=== PATIENT | female | born 1970 | race Asian ===

== ENCOUNTER 2016-03-19 10:43 | Emergency (ER) | payer OTHER, BC ==
[2016-03-19 11:30] VITALS: TEMP 98.4; BMI 37.2
[2016-03-19] MEDS ORDERED: diazePAM 5 MG TABLET PO ONE (17:45)
[2016-03-19] MEDS ORDERED: KETOROLAC TROMETHAMINE 60 MG/2 ML VIAL ONE (17:45)
[2016-03-19] MEDS ORDERED: diazePAM 5 MG TABLET ONE (17:45)
[2016-03-19] MEDS ORDERED: KETOROLAC TROMETHAMINE 60 MG/2 ML VIAL IM ONE (17:45)
[2016-03-19] MEDS ORDERED: ALBUTEROL SO4 2.5/IPRATROPIUM 0.5 INH SOL 3 ML VIAL.NEB. NEB ONE (17:47)
--- NOTE | 2016-03-19 17:47 | PDOC ---
History of Present Illness - General History Source: Patient Exam Limitations: No Limitations - History of Present Illness Initial Comments: 03/19/16 18:57 The patient is a 45 year old female, with a significant past medical history of HTN, who was sent by his PCP and presents to the emergency department with left sided back pain since . The patient ranks her pain a 9/10 in pain intensity. She denies any injury or trauma. She reports that the pain occasionally radiates down her leg. She reports the pain is worse when she tries to sits and walks long distances. She describes the pain as sharp and constant. The patient reports being here 03/16/16 with similar symptoms and discharged with percocets. She reports percocets often alleviate her pain. Pt denies any numbness/tingling/weakness, urinary/bowel complaints, recent feve/ rchills. She denies chest pain and shortness of breath. She denies fever, chills, headache and dizziness. She denies nausea, vomit, diarrhea and constipation. She denies dysuria, frequency, urgency and hematuria. Allergies: As per Nursing notes. Past surgical history: None of significance, Social history: Former smoker. Denies EtOH and drug abuse. PCP: Dr. Siri Valadez <Alfonso Emmanuel - Last Filed: 03/19/16 19:01> <Himanshu Ott - Last Filed: 03/19/16 21:15> - General Chief Complaint: Pain, Acute Stated Complaint: PCP SENT, LT SIDE PAIN Time Seen by Provider: 03/19/16 17:04 Past History <Alfonso Emmanuel - Last Filed: 03/19/16 19:01> - Past Medical History HTN: Yes - Surgical History Cholecystectomy: Yes - Psycho/Social/Smoking Cessation Hx Anxiety: No Suicidal Ideation: No Smoking Status: No Smoking History: Never smoked Have you smoked in the past 12 months: No Number of Cigarettes Smoked Daily: 0 Information on smoking cessation initiated: No Hx Alcohol Use: No Drug/Substance Use Hx: No Substance Use Type: None <Himanshu Ott - Last Filed: 03/19/16 21:15> - Past Medical History Allergies/Adverse Reactions: Allergies Allergy/AdvReac Type Severity Reaction Status Date / Time doxycycline Allergy NAUSEA Verified 03/19/16 11:24 lisinopril Allergy Verified 03/19/16 11:24 Sulfa (Sulfonamide Allergy Verified 03/19/16 11:24 Antibiotics) sulfamethoxazole Allergy Verified 03/19/16 11:24 [From Bactrim] trimethoprim [From Bactrim] Allergy Verified 03/19/16 11:24 amlodipine AdvReac Intermediate Leg Edema Verified 03/19/16 11:24 Home Medications: Ambulatory Orders Albuterol Sulfate Inhaler - [Ventolin HFA Inhaler -] 1 - 2 inh PO Q4H #1 inhaler 03/19/16 Cyclobenzaprine HCl [Flexeril -] 10 mg PO TID #21 tablet 03/19/16 Ibuprofen 400 mg PO QID #30 tablet 03/19/16 Levofloxacin [Levaquin] 750 mg PO DAILY #5 tablet 03/19/16 Review of Systems - Review of Systems Able to Perform ROS?: Yes Comments:: 03/19/16 18:57 CONSTITUTIONAL: No reported: Fever, Chills, Diaphoresis, Generalized Weakness, Malaise, Loss of Appetite HEENT: No reported: Rhinorrhea, Nasal Congestion, Throat Pain, Throat Swelling, Difficulty Swallowing, Mouth Swelling, Ear Pain, Eye Pain, Visual Changes CARDIOVASCULAR: No reported: Chest Pain, Syncope, Palpitations, Irregular Heart Rate, Lightheadedness, Peripheral Edema RESPIRATORY: No reported: Cough, Shortness of Breath, SOB with Exertion, Orthopnea, Wheezing , Stridor, Hemoptysis GASTROINTESTINAL: . No reported: Vomiting, Diarrhea, Constipation, Melena, Hematochezia GENITOURINARY: Reported: Left back pain. No reported: Dysuria, Frequency, Urgency, Hesitancy, MUSCULOSKELETAL: No reported: Myalgia, Arthralgia, Joint Swelling, Back pain, Neck Pain SKIN: No reported: Rash, Itching, Pallor HEMEATOLOGIC/IMMUNOLOGIC: No reported: Easy Bleeding, Easy Bruising, Lymphadenopathy, Frequent infections ENDOCRINE: No reported: Unexplained Weight Gain, Unexplained Weight Loss, Heat Intolerance , Cold Intolerance NEUROLOGIC: No reported: Headache, Focal Weakness, Paresthesias, Vertigo, Lightheadedness, Unsteady Gait, Seizure, Mental Status Changes, Incontinence PSYCHIATRIC: No reported: Anxiety, Depression <Alfonso Emmanuel - Last Filed: 03/19/16 19:01> *Physical Exam - Vital Signs Last Vital Signs Temp Pulse Resp BP Pulse Ox 98.4 F 76 19 117/65 98 03/19/16 11:25 03/19/16 16:50 03/19/16 16:50 03/19/16 16:50 03/19/16 16:50 - Physical Exam Comments: 03/19/16 18:57 GENERAL: The patient is awake, alert, and fully oriented, Nontoxic. HEAD: Normocephalic, atraumatic. EYES: extraocular movements intact, sclera anicteric, conjunctiva clear. ENT: Normal voice, Moist mucous membranes. NECK: Normal range of motion, supple LUNGS: Mild wheezing both lungs wheezes, no rhonchi, no rales. HEART: Regular rate and rhythm, without murmur, rub or gallop. ABDOMEN: Soft, nontender, normoactive bowel sounds. No guarding, no rebound. No focal tenderness. No CVA tenderness. BACK: No focal bony tenderness but appeared uncomfortable while twisting her back. Mild pain with moving and walking. EXTREMITIES: Normal range of motion, no edema. No clubbing or cyanosis. No cords , erythema, or tenderness. NEUROLOGICAL: No facial asymmetry, Normal speech. strength 5/5 in upper/lower extrmities, normal gait. PSYCH: Normal mood, normal affect. SKIN: Warm, Dry, normal turgor. <Alfonso Emmanuel - Last Filed: 03/19/16 19:01> - Vital Signs Last Vital Signs Temp Pulse Resp BP Pulse Ox 98.4 F 83 18 130/83 99 03/19/16 11:25 03/19/16 11:25 03/19/16 11:25 03/19/16 11:25 03/19/16 11:25 <Himanshu Ott - Last Filed: 03/19/16 21:15> ED Treatment Course - ADDITIONAL ORDERS Additional order review: Laboratory Results 03/19/16 18:10 Urine Color Yellow Urine Appearance Slcloudy Urine pH 6.0 Ur Specific [place] 1.018 Urine Protein Negative Urine Glucose (UA) Negative Urine Ketones Negative Urine Blood 1+ H Urine Nitrite Negative Urine Bilirubin Negative Urine Urobilinogen Negative Ur Leukocyte Esterase 3+ H Urine RBC 18 Urine WBC 40 Ur Epithelial Cells Few Urine Bacteria Rare Urine Mucus Rare Urine HCG, Qual Negative - Medications Given in the ED: ED Medications Discontinued Medications Generic Name Dose Route Start Last Admin Trade Name Aiden PRN Reason Stop Dose Admin Diazepam 5 mg 03/19/16 17:45 03/19/16 17:50 Valium - PO 03/19/16 17:46 5 mg ONCE ONE Administration Ketorolac Tromethamine 60 mg 03/19/16 17:45 03/19/16 17:50 Toradol Injection - IM 03/19/16 17:46 60 mg ONCE ONE Administration <Alfonso Emmanuel - Last Filed: 03/19/16 19:01> Medical Decision Making - Medical Decision Making 03/19/16 17:47 45y yF hx of htn presents with R back pain worse with movement, no associated numbnes/stingling/weakess, no trauma, no urinary/bowel incontinence. on exam pt in no acute distress but appears uncomfortablw hwne she is moving around espeicaily with rotational movements, however there is no focal tendereness on exam. will ck UA to r/o hematuria/uti suspect this is msk in nature - will give toradol and valium 03/19/16 20:57 pt feeling improved, but still endorrses pain when she moves around. pts UA was intially dirty repeated with pt wiping well - still dirty will tx pt for uti w/ leviquin as it will cover pyleo clinically pts pain seems msk and not pyelo - will d/c with supportive management including flexeril, motrin, heat maximino lhave pt fu with pmd for further evaluation. I discussed the physical exam findings, ancillary test results and final diagnoses with the patient. I answered all of the patient's questions. The patient was satisfied with the care received and felt comfortable with the discharge plan and treatment plan. The patient will call their primary care physician within 24 hours to arrange follow-up and will return to the Emergency Department with any new, persistent or worsening symptoms. A portion of this note was documented by scribe services under my direction. I have reviewed the details of the note, within reason, and agree with the documentation with the following case summary and management plan written by me <Himanshu Ott - Last Filed: 03/19/16 21:15> *DC/Admit/Observation/Transfer - Attestations Scribe Attestion: 01/03/17 18:57 Documentation prepared by Alfonso Emmanuel, acting as medical billing service for Himanshu Ott MD. <Alfonso Emmanuel - Last Filed: 03/19/16 19:01> - Discharge Dispostion Admit: No <Himanshu Ott - Last Filed: 03/19/16 21:15> Diagnosis at time of Disposition: Back pain Qualifiers: Back pain location: low back pain Chronicity: acute Back pain laterality: left Sciatica presence: without sciatica Qualified Code(s): M54.5 - Low back pain UTI (urinary tract infection) Qualifiers: Urinary tract infection type: site unspecified Hematuria presence: with hematuria Qualified Code(s): N39.0 - Urinary tract infection, site not specified - Discharge Dispostion Disposition: HOME Condition at time of disposition: Improved - Prescriptions Prescriptions: Cyclobenzaprine HCl [Flexeril -] 10 mg PO TID #21 tablet Ibuprofen 400 mg PO QID #30 tablet Levofloxacin [Levaquin] 750 mg PO DAILY #5 tablet Albuterol Sulfate Inhaler - [Ventolin HFA Inhaler -] 1 - 2 inh PO Q4H #1 inhaler - Referrals Referrals: Siri Valadez [Primary Care Provider] - - Patient Instructions Printed Discharge Instructions: DI for Low Back Pain, DI for Urinary Tract Infection (UTI) Additional Instructions: Return to the emergency department immediately with ANY new, persistent or worsening symptoms including numbness, tingling, weakness, fevers or any other concerns. Take ibuprofen for pain as needed. Apply heat to your sore muscles. Take your antibiotics as prescribed You MUST call and follow up with your doctor tomorrow for further evaluation of your symptoms. Results were discussed with you. Please make sure your doctor reviews the results of your emergency evaluation. Print Language: SERBIAN - Post Discharge Activity Work/School Note: Back to Work
[2016-03-19 18:27] LABS: URINE APPEARANCE SLCLOUDY; URINE BILIRUBIN NEGATIVE (NEGATIVE); URINE COLOR YELLOW; URINE GLUCOSE (UA) NEGATIVE (NEGATIVE); URINE KETONE NEGATIVE (NEGATIVE); URINE NITRITE NEGATIVE (NEGATIVE); URINE PROTEIN NEGATIVE (NEGATIVE); URINE UROBILINOGEN NEGATIVE E.U./dl (0.2-1.0)
[2016-03-19 18:29] LABS: URINE BLOOD 1+ (NEGATIVE); URINE LEUK ESTERASE 3+ (NEGATIVE)
[2016-03-19 18:34] LABS: URINE BACTERIA RARE /hpf (NONE SEEN); URINE MUCUS RARE; URINE RBC 18 /hpf (0-3); URINE WBC 40 /hpf (3-5)
[2016-03-19 18:43] VITALS: BP 117/65; PULSE 76
[2016-03-19 19:54] LABS: URINE APPEARANCE CLEAR; URINE BILIRUBIN NEGATIVE (NEGATIVE); URINE COLOR YELLOW; URINE GLUCOSE (UA) NEGATIVE (NEGATIVE); URINE KETONE NEGATIVE (NEGATIVE); URINE NITRITE NEGATIVE (NEGATIVE); URINE PROTEIN NEGATIVE (NEGATIVE); URINE UROBILINOGEN 2.0 E.U/dl E.U./dl (0.2-1.0)
[2016-03-19 19:55] LABS: URINE BLOOD 1+ (NEGATIVE); URINE LEUK ESTERASE 2+ (NEGATIVE)
[2016-03-19 19:56] LABS: URINE MUCUS RARE; URINE RBC 13 /hpf (0-3); URINE WBC 14 /hpf (3-5)
== END 2016-03-19 21:18 | disposition home or self-care (01) ==
LOC: JER 10:43
PROC: 3E0233Z Introduction of Anti-inflammatory into Muscle, Percutaneous Approach (ICD-10-PCS; principal; 2016-03-19)
PROC: 3E0F7GC Introduction of Other Therapeutic Substance into Respiratory Tract, Via Natural or Artificial Opening (ICD-10-PCS; 2016-03-19)
DX: N39.0 Urinary tract infection, site not specified (principal); M54.5 Low back pain; I10 Essential (primary) hypertension
CPT/HCPCS: 81003; 81015; 84703; 87086; 99282-25

== ENCOUNTER 2017-04-07 14:17 | Emergency (ER) | payer OTHER, BC ==
[2017-04-07 14:23] VITALS: BMI 35.4
[2017-04-07] MEDS ORDERED: FAMOTIDINE 20 MG/50 ML IVPB 20 MG/50 ML MG IVPB ONE (14:42)
[2017-04-07] MEDS ORDERED: ONDANSETRON 4 MG/2 ML VIAL IVPUSH ONE (14:42)
[2017-04-07] MEDS ORDERED: SODIUM CHLORIDE 0.9% 500 ML INFUS.BAG IV ONE (14:42)
--- NOTE | 2017-04-07 14:42 | PDOC ---
History of Present Illness - General History Source: Patient Exam Limitations: No Limitations - History of Present Illness Initial Comments: 04/07/17 15:50 The patient is a 46 y.o female with significant past medical history of HTN and hypothyroidism, who presents to the emergency room complaining of 2 days of nausea, multiple episodes of vomiting, and intermittent, crampy epigastric abdominal pain. The patient explains that the nausea and vomiting started last night. She experienced approximately 10 episodes of nonbloody, nonbilious vomiting and multiple episodes of diarrhea. Denies bloody, tarry stool. The patient notes that she had a 99 degree fever and chills throughout the day. She notes that she may have had sick contact at work. Reports cramping abd pain occurs just prior to vomiting. Allergies: doxycycline, Sulfa, lisinopril, sulfamethoxazole, trimethoprim, amlodipine Surgical hx: cholecystectomy PCP: Dr. Siri Valadez <Dot De La Vega - Last Filed: 04/07/17 15:50> <Kathy Kline - Last Filed: 04/07/17 16:47> - General Chief Complaint: Nausea/Vomiting Stated Complaint: N/V/D, ABD PAIN Time Seen by Provider: 04/07/17 14:20 Past History <Dot De La Vega - Last Filed: 04/07/17 15:50> - Past Medical History COPD: No HTN: Yes Thyroid Disease: Yes - Surgical History Cholecystectomy: Yes - Suicide/Smoking/Psychosocial Hx Smoking Status: No Smoking History: Never smoked Have you smoked in the past 12 months: No Number of Cigarettes Smoked Daily: 0 Hx Alcohol Use: Yes Drug/Substance Use Hx: No Substance Use Type: Alcohol <Kathy Kline - Last Filed: 04/07/17 16:47> - Past Medical History Allergies/Adverse Reactions: Allergies Allergy/AdvReac Type Severity Reaction Status Date / Time doxycycline Allergy NAUSEA Verified 04/07/17 14:18 lisinopril Allergy Verified 04/07/17 14:18 Sulfa (Sulfonamide Allergy Verified 04/07/17 14:18 Antibiotics) sulfamethoxazole Allergy Verified 04/07/17 14:18 [From Bactrim] trimethoprim [From Bactrim] Allergy Verified 04/07/17 14:18 amlodipine AdvReac Intermediate Leg Edema Verified 04/07/17 14:18 Home Medications: Ambulatory Orders Levothyroxine [Synthroid -] 50 mcg PO DAILY 04/07/17 Ondansetron [Zofran Odt -] 4 mg SL TID PRN #14 od.tablet 04/07/17 Review of Systems - Review of Systems Able to Perform ROS?: Yes Comments:: 04/07/17 15:51 GENERAL/CONSTITUTIONAL: +fever, chills. No weakness. HEAD, EYES, EARS, NOSE AND THROAT: No change in vision. No ear pain or discharge. No sore throat. GASTROINTESTINAL: +nausea, +vomiting, +abdominal pain, +diarrhea No constipation. GENITOURINARY: No dysuria, frequency, or change in urination. CARDIOVASCULAR: No chest pain or shortness of breath. RESPIRATORY: No cough, wheezing, or hemoptysis. MUSCULOSKELETAL: No joint or muscle swelling or pain. No neck or back pain. SKIN: No rash NEUROLOGIC: No headache, vertigo, loss of consciousness, or change in strength/ sensation. ENDOCRINE: No increased thirst. No abnormal weight change. HEMATOLOGIC/LYMPHATIC: No anemia, easy bleeding, or history of blood clots. ALLERGIC/IMMUNOLOGIC: No hives or skin allergy. <Dot De La Vega - Last Filed: 04/07/17 15:50> *Physical Exam - Vital Signs Last Vital Signs Temp Pulse Resp BP Pulse Ox 99.2 F 76 18 130/91 100 04/07/17 14:18 04/07/17 14:18 04/07/17 14:18 04/07/17 14:18 04/07/17 14:18 - Physical Exam Comments: 04/07/17 15:51 GENERAL: Awake, alert, and fully oriented, in no acute distress HEAD: No signs of trauma EYES: PERRLA, EOMI, sclera anicteric, conjunctiva clear ENT: Auricles normal inspection, hearing grossly normal, nares patent, oropharynx clear without exudates. Moist mucosa NECK: Normal ROM, supple, no lymphadenopathy, JVD, or masses LUNGS: Breath sounds equal, clear to auscultation bilaterally. No wheezes, and no crackles HEART: Regular rate and rhythm, normal S1 and S2, no murmurs, rubs or gallops ABDOMEN: Soft, nontender, normoactive bowel sounds. No guarding, no rebound. No masses. Neg tay sign. No CVAT EXTREMITIES: Normal range of motion, no edema. No clubbing or cyanosis. No cords, erythema, or tenderness BACK: No midline spinal tenderness in cervical/thoracic/lumbar region NEUROLOGICAL: Normal speech, cranial nerves intact, negative pronator drift, 5/ 5 strength in all 4 extremities, normal sensation to light touch in all 4 extremities, normal cerebellar exam, normal gait, normal reflexes and tone SKIN: Warm, Dry, normal turgor, no rashes or lesions noted. <Dot De La Vega - Last Filed: 04/07/17 15:50> - Vital Signs Last Vital Signs Temp Pulse Resp BP Pulse Ox 99.2 F 76 18 130/91 100 04/07/17 14:18 04/07/17 14:18 04/07/17 14:18 04/07/17 14:18 04/07/17 14:18 <Kathy Kline - Last Filed: 04/07/17 16:47> ED Treatment Course - LABORATORY CBC & Chemistry Diagram: 04/07/17 14:36 04/07/17 14:36 - ADDITIONAL ORDERS Additional order review: Laboratory Results 04/07/17 14:40 Lipase 26 04/07/17 14:36 RBC 5.21 H MCV 86.7 MCHC 32.5 RDW 13.0 MPV 8.5 Neutrophils % 73.1 Lymphocytes % 15.3 Monocytes % 8.6 Eosinophils % 1.5 Basophils % 1.5 - Medications Given in the ED: ED Medications Discontinued Medications Generic Name Dose Route Start Last Admin Trade Name Freq PRN Reason Stop Dose Admin Famotidine/Sodium Chloride 20 mg in 50 mls @ 100 mls/hr 04/07/17 14:42 14:52 Pepcid 20 Mg Premixed Ivpb - IVPB 04/07/17 15:11 100 mls/hr ONCE ONE Administration Ondansetron HCl 4 mg 04/07/17 14:42 04/07/17 14:52 Zofran Injection IVPUSH 04/07/17 14:43 4 mg ONCE ONE Administration Sodium Chloride 2,000 ml 04/07/17 14:42 04/07/17 14:52 Normal Saline - IV 04/07/17 14:43 2,000 ml ONCE ONE Administration <Dot De La Vega - Last Filed: 04/07/17 15:50> - LABORATORY CBC & Chemistry Diagram: 04/07/17 14:36 04/07/17 14:36 <Kathy Kline - Last Filed: 04/07/17 16:47> Medical Decision Making - Medical Decision Making 04/07/17 14:44 46-year-old female with a history of hypertension, hypothyroidism presents with epigastric cramping associated with nonbloody nausea, vomiting, and diarrhea. Vitals are unremarkable. Exam with sightly dry mucous membranes and mild epigastric tenderness to palpation. The patient is a hospital employee. Differential includes but not limited to gastroenteritis versus pancreatitis versus colitis. Will obtain labs, urine test, and give IV fluids, antiemetics for symptom control. Will hold off on any imaging as patient does not have any right upper quadrant or lower abdominal tenderness to palpation. 04/07/17 16:23 Labs unremarkable, K slightly low at 3.4, gave pt 20meq PO KCl, felt slightly nauseous afterwards but improved with IV reglan. UPT neg. Repeat abd exam non tender. Pt tolerating PO. Likely gastroetneritis. I discussed the physical exam findings, ancillary test results and final diagnoses with the patient. I answered all of the patient's questions. The patient was satisfied with the care received and felt comfortable with the discharge plan and treatment plan. The patient will call their primary care physician within 24 hours to arrange follow-up and will return to the Emergency Department with any new, persistent or worsening symptoms. <Kathy Kline - Last Filed: 04/07/17 16:47> *DC/Admit/Observation/Transfer - Attestations Scribe Attestion: 04/07/17 15:51 Documentation prepared by ANSON Wakefield, acting as medical pathologist for Kathy Kline MD. <Dot De La Vega - Last Filed: 04/07/17 15:50> - Discharge Dispostion Admit: No - Attestations Physician Attestion: 04/07/17 16:24 I, Dr. Kathy Kline MD, attest that this document has been prepared under my direction and personally reviewed by me in its entirety. I further attest, that it accurately reflects all work, treatment, procedures and medical decision -making performed by me. <Kathy Kline - Last Filed: 04/07/17 16:47> Diagnosis at time of Disposition: Gastroenteritis - Discharge Dispostion Disposition: HOME Condition at time of disposition: Stable - Prescriptions Prescriptions: Ondansetron [Zofran Odt -] 4 mg SL TID PRN #14 od.tablet PRN Reason: Nausea - Referrals Referrals: Siri Valadez [Primary Care Provider] - - Patient Instructions Printed Discharge Instructions: DI for Nausea -- Adult, DI for Vomiting -- Adult Additional Instructions: Follow-up with Dr. Valadez within 1-2 days. Stay hydrated and drink plenty of fluids. Use Zofran as needed for nausea. Return to the emergency department if you have any new, worsening or concerning symptoms. - Post Discharge Activity Forms/Work/School Notes: Back to Work
[2017-04-07] MEDS ORDERED: ONDANSETRON 4 MG/2 ML VIAL ONE (14:44)
[2017-04-07 15:02] LABS: BASO % 1.5 % (0-2.0); EOS % 1.5 % (0-4.5); HEMATOCRIT 45.2 % (32.4-45.2); HEMOGLOBIN 14.7 GM/dl (10.7-15.3); LYMPH % 15.3 % (8-40); MCH 28.2 pg (25.7-33.7); MCHC 32.5 g/dl (32.0-36.0); MEAN CELL VOLUME 86.7 fl (80-96); MEAN PLT VOLUME 8.5 fl (7.5-11.1); MONO % 8.6 % (3.8-10.2); NEUT % 73.1 % (42.8-82.8); PLATELET COUNT 275 K/MM3 (134-434); RBC 5.21 M/mm3 (3.60-5.2); WHITE BLOOD COUNT 8.8 K/mm3 (4.0-10.8)
[2017-04-07 15:56] LABS: ALK PHOS 67 U/L (32-92); ANION GAP 9 (8-16); BILIRUBIN,TOTAL 0.5 mg/dl (0.2-1.0); BLOOD UREA NITROGEN 12 mg/dl (7-18); CALCIUM 8.9 mg/dl (8.4-10.2); CHLORIDE 103 mmol/L (98-107); CO2 23 mmol/L (22-28); CREATININE 0.9 mg/dl (0.6-1.3); GLUCOSE,RANDOM 89 mg/dl (74-106); POTASSIUM 3.4 mmol/L (3.5-5.1); SGOT/AST 24 U/L (10-42); SGPT/ALT 23 U/L (10-40); SODIUM 135 mmol/L (136-145)
[2017-04-07 16:05] VITALS: BP 117/73; PULSE 62
[2017-04-07] MEDS ORDERED: POTASSIUM CHLORIDE ORAL LIQUID 20 MEQ/15 ML PO ONE (16:10)
[2017-04-07] MEDS ORDERED: POTASSIUM CHLORIDE ORAL LIQUID 20 MEQ/15 ML ONE (16:20)
[2017-04-07] MEDS ORDERED: METOCLOPRAMIDE HCL INJECTION 10 MG/2 ML VIAL IVPUSH ONE (16:26)
[2017-04-07 16:46] VITALS: TEMP 97.5
== END 2017-04-07 17:01 | disposition home or self-care (01) ==
LOC: FER 14:17
PROC: 3E0337Z Introduction of Electrolytic and Water Balance Substance into Peripheral Vein, Percutaneous Approach (ICD-10-PCS; principal; 2017-04-07)
PROC: 3E033GC Introduction of Other Therapeutic Substance into Peripheral Vein, Percutaneous Approach (ICD-10-PCS; 2017-04-07)
DX: K52.9 Noninfective gastroenteritis and colitis, unspecified (principal); I10 Essential (primary) hypertension; E03.9 Hypothyroidism, unspecified
CPT/HCPCS: 36415; 80053; 83690; 84703; 85025; 99283-25

== ENCOUNTER 2019-04-14 16:27 | Emergency (ER) | payer OTHER ==
[2019-04-14 16:38] VITALS: TEMP 97.9; BMI 38.9
--- NOTE | 2019-04-14 16:46 | PDOC ---
History of Present Illness - General Chief Complaint: Lightheaded Stated Complaint: SYNCOPY Time Seen by Provider: 04/14/19 16:41 - History of Present Illness Initial Comments: 04/14/19 17:38 48 y/o F hx of HTN, hypthyroidism, chronic leukocytosis, hemorrhoids pressents to the ER with dizziness. 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 this was followed by nausea. she woke up to go the bathroom so she could vomit and experienced vertigo while doing so. She has had 2 episodes of NBNB emesis. She has experienced these symptoms on and off for years, but reports that today was more severe. A rapid response was called to that floor. and patient was brought to the ED. She denies any fevers, chills, recent viral illness, head trauma, loss of consciousness, syncope. She endorses nausea, vomiting. Past History - Past Medical History Allergies/Adverse Reactions: Allergies Allergy/AdvReac Type Severity Reaction Status Date / Time doxycycline Allergy NAUSEA Verified 04/14/19 16:38 lisinopril Allergy Verified 04/14/19 16:38 Sulfa (Sulfonamide Allergy Verified 04/14/19 16:38 Antibiotics) sulfamethoxazole Allergy Verified 04/14/19 16:38 [From Bactrim] trimethoprim [From Bactrim] Allergy Verified 04/14/19 16:38 amlodipine AdvReac Intermediate Leg Edema Verified 04/14/19 16:38 Home Medications: Ambulatory Orders Levothyroxine [Synthroid -] 50 mcg PO DAILY 04/07/17 Meclizine HCl [Antivert -] 25 mg PO TID PRN #12 tablet 04/14/19 COPD: No HTN: Yes Thyroid Disease: Yes (hypo) - Surgical History Cholecystectomy: Yes - Psycho Social/Smoking Cessation Hx Smoking Status: No Smoking History: Never smoked Have you smoked in the past 12 months: No Number of Cigarettes Smoked Daily: 0 Information on smoking cessation initiated: No Hx Alcohol Use: No Drug/Substance Use Hx: No Substance Use Type: Alcohol Review of Systems - Review of Systems Constitutional: No: Chills, Fever HEENTM: No: Eye Pain, Tinnitus Respiratory: No: Cough, Shortness of Breath Cardiac (ROS): Yes: Lightheadedness. No: Chest Pain ABD/GI: Yes: Nausea, Vomiting. No: Diarrhea : No: Burning, Dysuria Musculoskeletal: No: Back Pain, Joint Pain Integumentary: No: Bruising, Change in Color Neurological: Yes: Headache. No: Seizure Psychiatric: Yes: Anxiety *Physical Exam - Vital Signs Last Vital Signs Temp Pulse Resp BP Pulse Ox 97.9 F 84 18 145/86 97 04/14/19 16:36 04/14/19 16:36 04/14/19 16:36 04/14/19 16:36 04/14/19 16:36 - Physical Exam General Appearance: Yes: Nourished, Appropriately Dressed. No: Apparent Distress HEENT: positive: EOMI (increased dizziness with this maneuver), TAMAR, TMs Normal , Hearing Grossly Normal. negative: Scleral Icterus (R), Scleral Icterus (L), TM Bulging Neck: positive: Trachea midline, Supple. negative: Rigid Respiratory/Chest: positive: Lungs Clear, Normal Breath Sounds. negative: Chest Tender, Respiratory Distress Cardiovascular: positive: Regular Rhythm, Regular Rate, S1, S2. negative: JVD, Murmur Vascular Pulses: Dorsalis-Pedis (R): 2+, Doralis-Pedis (L): 2+ Gastrointestinal/Abdominal: positive: Normal Bowel Sounds, Soft. negative: Tender, Distended, Rebound, Tenderness Musculoskeletal: positive: Normal Inspection. negative: CVA Tenderness, CVA Tenderness (R) Extremity: positive: Normal Capillary Refill, Normal Inspection, Normal Range of Motion. negative: Tender Integumentary: positive: Normal Color, Dry, Warm Neurologic: positive: final coat sprayer II-XII NML intact, Fully Oriented, Alert, Normal Mood/ Affect, Normal Response, Motor Strength 5/5 (increas), Other (increased dizziness and nausea with amy-hallpike maneuver. no nystagmus observed) ED Treatment Course - LABORATORY CBC & Chemistry Diagram: 04/14/19 17:50 04/14/19 17:50 Medical Decision Making - Medical Decision Making 04/14/19 17:57 48 y/o F hx of HTN, hypthyroidism, chronic leukocytosis, hemorrhoids pressents to the ER with dizziness. BPPV vs Meniere's vs Anemia vs arrhythmia vs brain lesion cbc, cmp, ekg, head ct w/o contrast ua , tsh, Meds: reglan, tylenol, meclizine, normal saline 1L eKG: Normal sinus rhythm no St elevations. 04/14/19 18:45 Pt. reassessed at bedside, nausea and dizziness still present, but improved. 04/14/19 18:46 given Zofran 4mg IV 04/14/19 20:[address] w/o contrast. no CT evidence of acute intracranial pathology no gross interval change seen in comparison to prior CT from 09/23/2011 On reassesment, pt able to walk without feeling dizzy. Nausea and headache have also resolved. Discharge - Discharge Information Problems reviewed: Yes Clinical Impression/Diagnosis: Vertigo, Near syncope Condition: Improved Disposition: HOME - Additional Discharge Information Prescriptions: Meclizine HCl [Antivert -] 25 mg PO TID PRN #12 tablet PRN Reason: vertigo - Follow up/Referral Referrals: Siri Valadez [Primary Care Provider] - James Rodriguez MD [Staff Physician] - Los Powell MD [Staff Physician] - Donta Louis MD [Staff Physician] - - Patient Discharge Instructions Patient Printed Discharge Instructions: Vertigo Additional Instructions: You have been prescribed medication for your vertigo. this is a temporary measure, and your care is not complete until you follow up with your primary care provider and specialists whose information we have provided to you. follow up with your primary care provider and specialist in the next 2-3 days. Return to the ER if you experience worsening of today's symptoms that is not resolved by medications given to you you develop headache not relieved by over the counter medications - Post Discharge Activity Work/Back to School Note: Back to Work
[2019-04-14] MEDS ORDERED: METOCLOPRAMIDE HCL INJECTION 10 MG/2 ML VIAL IVPUSH ONE (17:19)
[2019-04-14] MEDS ORDERED: SODIUM CHLORIDE 0.9% 1000 ML INFUS.BAG IV ONE (17:19)
[2019-04-14] MEDS ORDERED: MECLIZINE HCL 25 MG TABLET (FP) PO ONE (17:21)
--- NOTE | 2019-04-14 17:52 | PDOC ---
Documentation entered by Sudarshan Mccrary SCRIBE, acting as scribe for Shena Cortez DO. Shena Cortez DO: This documentation has been prepared by the Hermann zamarripa Xhesika, SCRIBE, under my direction and personally reviewed by me in its entirety. I confirm that the documentation accurately reflects all work, treatment, procedures, and medical decision making performed by me. Attending Attestation - Resident Resident Name: BoniEzeRichelleMonique - ED Attending Attestation I have performed the following: I have examined & evaluated the patient, The case was reviewed & discussed with the resident, I agree w/resident's findings & plan, Exceptions are as noted - HPI HPI: 04/14/19 17:41 The patient is a 48 y/o female with a significant past medical history of HTN and hypothyroidism, who presents to the emergency room for an episode of dizziness. Pt states she was at her desk while at work ([employer] employee), felt sudden onset dizziness and lightheadedness, tried putting her head down and immediately felt nauseous. Pt reports she then went to the bathroom and felt like the room was spinning and endorsed 2 episodes of nbnb emesis. Pt states these symptoms have been occurring for years. Pt reports intermittent chest heaviness but never followed by cardiology. Pt states she was told to see Dr. Powell for colonoscopy/endoscopy and never did. Allergies: doxycycline, Sulfa, lisinopril, sulfamethoxazole, trimethoprim, amlodipine Surgical hx: cholecystectomy PCP: Dr. Siri Valadez - Physicial Exam PE: 04/14/19 17:42 GENERAL: Awake, alert, and fully oriented, in no acute distress HEAD: No signs of trauma EYES: PERRLA, EOMI, sclera anicteric, conjunctiva clear. +symptomatic when looking right and left. no nystagmus ENT: Auricles normal inspection, hearing grossly normal, nares patent, oropharynx clear without exudates. Moist mucosa NECK: Normal ROM, supple, no lymphadenopathy, JVD, or masses LUNGS: Breath sounds equal, clear to auscultation bilaterally. No wheezes, and no crackles HEART: Regular rate and rhythm, normal S1 and S2, no murmurs, rubs or gallops ABDOMEN: Soft, nontender, normoactive bowel sounds. No guarding, no rebound. No masses EXTREMITIES: Normal range of motion, no edema. No clubbing or cyanosis. No cords, erythema, or tenderness NEUROLOGICAL: Cranial nerves II through XII grossly intact. SKIN: Warm, Dry, normal turgor, no rashes or lesions noted. - Medical Decision Making 04/14/19 17:50 a/p: 48yo female with vertiginous symptoms assoc with cp, vomiting, stubbs -pt states she has been having these symptoms x years -also states she has anemia and leukocytosis for years and supposed to see Dr. Powell -follows with Dr. Valadez and Dr. Smalls -pt states intermittent cp - today with cp prior to feeling lightheaded and dizzy on the floor -pressure in chest -pt states she has not told her PMD -pt was working on the 6th floor today when the symptoms started, she vomited and everytime she moved her symptoms worsened -will send for head ct, labs, cxr, ekg, trop -will hydrate, reglan, meclizine -will monitor and reassess 04/14/19 18:53 pt states feeling better elevated tsh, will add free t4 pt to head ct 04/14/19 20:[address] neg free t4 normal labs reviewed 04/14/19 20:26 trop neg pt states feeling better ambulatory in the er stable for dc to home and follow up with her PMD Dr. Siri Valadez Heart Score/ECG Review - ECG Intrepretation Comment:: 04/14/19 17:48 sinus at 84, nl axis, nl interval, no acute st/t wave findings
[2019-04-14] MEDS ORDERED: METOCLOPRAMIDE HCL INJECTION 10 MG/2 ML VIAL ONE (17:53)
[2019-04-14] MEDS ORDERED: ACETAMINOPHEN 1000 MG/100 ML VIAL (NON FORMULARY) IVPB ONE (17:53)
[2019-04-14] MEDS ORDERED: MECLIZINE HCL 25 MG TABLET (FP) ONE (17:54)
[2019-04-14 18:04] LABS: BASO % 0.7 % (0-2.0); EOS % 3.6 % (0-4.5); HEMATOCRIT 43.6 % (32.4-45.2); HEMOGLOBIN 14.4 GM/dL (10.7-15.3); LYMPH % 19.8 % (8-40); MCH 28.8 pg (25.7-33.7); MEAN CELL VOLUME 87.2 fl (80-96); MEAN PLT VOLUME 8.5 fl (7.5-11.1); MONO % 5.4 % (3.8-10.2); NEUT % 70.5 % (42.8-82.8); PLATELET COUNT 286 K/MM3 (134-434); RDW 13.9 % (11.6-15.6); WHITE BLOOD COUNT 11.9 K/mm3 (4.0-10.0)
[2019-04-14] MEDS ORDERED: ACETAMINOPHEN INJECTION 100 ML IVPB ONE (18:12)
[2019-04-14 18:34] LABS: EPI CELLS 1.6 /HPF (0-5/HPF); HYALINE CASTS 2 /lpf (0-8); PH,URINE 6.5 (5.0-8.0); URINE APPEARANCE CLEAR; URINE BACTERIA 74.6 /hpf (NEGATIVE); URINE BILIRUBIN NEGATIVE (NEGATIVE); URINE COLOR YELLOW; URINE GLUCOSE (UA) NEGATIVE (NEGATIVE); URINE KETONE NEGATIVE (NEGATIVE); URINE LEUK ESTERASE 1+ (NEGATIVE); URINE NITRITE NEGATIVE (NEGATIVE); URINE PROTEIN NEGATIVE (NEGATIVE); URINE UROBILINOGEN 0.2 mg/dL (0.2-1.0); URINE WBC 4 /hpf (0-5)
[2019-04-14 18:38] LABS: ALBUMIN 3.9 g/dl (3.4-5.0); BILIRUBIN,TOTAL 0.2 mg/dL (0.2-1); CALCIUM 8.9 mg/dL (8.5-10.1); CREATININE 1.1 mg/dL (0.55-1.3); MAGNESIUM 2.1 mg/dL (1.8-2.4); POTASSIUM 3.7 mmol/L (3.5-5.1); TOT PROT 7.4 g/dl (6.4-8.2)
[2019-04-14] MEDS ORDERED: FAMOTIDINE 20 MG/50 ML IVPB 20 MG/50 ML MG IVPB ONE ×2 (18:51→20:33)
[2019-04-14] MEDS ORDERED: ONDANSETRON 4 MG/2 ML VIAL IVPUSH ONE ×2 (18:51)
[2019-04-14 19:54] LABS: URINE RBC 0-3 /hpf (0-4)
[2019-04-14] MEDS ORDERED: ONDANSETRON 4 MG/2 ML VIAL ONE (20:33)
[2019-04-14 21:06] VITALS: BP 140/81; PULSE 76
--- NOTE | 2019-04-15 12:42 | EKG ---
Test Reason : Blood Pressure : / mmHG Vent. Rate : 084 BPM Atrial Rate : 084 BPM P-R Int : 160 ms QRS Dur : 094 ms QT Int : 388 ms P-R-T Axes : 027 067 054 degrees QTc Int : 458 ms NORMAL SINUS RHYTHM NORMAL ECG WHEN COMPARED WITH ECG OF 04-MAR-2017 11:45, NO SIGNIFICANT CHANGE WAS FOUND Confirmed by NICK SHORT MD ([id number]) on 04/15/2019 12:41:59 PM Referred By: Confirmed By:NICK SHORT MD
== END 2019-04-14 21:05 | disposition home or self-care (01) ==
LOC: JER 16:27
PROC: 3E033GC Introduction of Other Therapeutic Substance into Peripheral Vein, Percutaneous Approach (ICD-10-PCS; principal; 2019-04-14)
PROC: 3E033NZ Introduction of Analgesics, Hypnotics, Sedatives into Peripheral Vein, Percutaneous Approach (ICD-10-PCS; 2019-04-14)
DX: R42 Dizziness and giddiness (principal); Z88.8 Allergy status to other drugs, medicaments and biological substances; Z88.2 Allergy status to sulfonamides; I10 Essential (primary) hypertension; E78.5 Hyperlipidemia, unspecified; F41.9 Anxiety disorder, unspecified
CPT/HCPCS: 36415; 70450-TC; 80053; 81003; 82550; 82553; 83735; 84436; 84439; 84443; 84484; 84703; 85025; 93005; 93010; 99284-25; J0131; J7030

== ENCOUNTER 2019-12-13 14:59 | Emergency (ER) | payer OTHER ==
--- NOTE | 2019-12-13 15:16 | PDOC ---
Rapid Medical Evaluation Time Seen by Provider: 12/13/19 15:13 Medical Evaluation: Allergies Allergy/AdvReac Type Severity Reaction Status Date / Time doxycycline Allergy NAUSEA Verified 08/29/19 16:57 lisinopril Allergy Verified 08/29/19 16:57 Sulfa (Sulfonamide Allergy Verified 08/29/19 16:57 Antibiotics) sulfamethoxazole Allergy Verified 08/29/19 16:57 [From Bactrim] trimethoprim [From Bactrim] Allergy Verified 08/29/19 16:57 amlodipine AdvReac Intermediate Leg Edema Verified 08/29/19 16:57 12/13/19 15:15 Pt presents for evaluation of heavy menstrual bleeding. She states she is soaking more than one pad and hour. She also endorses dizziness and weakness. Exam: RRR, NAD. Vaginal exam deferred Orders: labs, T&S Pt to proceed to the ER for further evaluation Discharge Disposition - Diagnosis Vaginal bleeding - Referrals - Patient Instructions - Post Discharge Activity
[2019-12-13 15:21] VITALS: BMI 38.9
--- NOTE | 2019-12-13 15:56 | PDOC ---
History of Present Illness - General Chief Complaint: Vaginal Bleeding Stated Complaint: VAGINAL BLEEDING Time Seen by Provider: 12/13/19 15:13 Past History - Medical History Allergies/Adverse Reactions: Allergies Allergy/AdvReac Type Severity Reaction Status Date / Time doxycycline Allergy NAUSEA Verified 12/13/19 15:21 lisinopril Allergy Verified 12/13/19 15:21 Sulfa (Sulfonamide Allergy Verified 12/13/19 15:21 Antibiotics) sulfamethoxazole Allergy Verified 12/13/19 15:21 [From Bactrim] trimethoprim [From Bactrim] Allergy Verified 12/13/19 15:21 amlodipine AdvReac Intermediate Leg Edema Verified 12/13/19 15:21 Home Medications: Ambulatory Orders Levothyroxine [Synthroid -] 50 mcg PO DAILY 04/07/17 Meclizine HCl [Antivert -] 25 mg PO TID PRN #12 tablet 04/14/19 Ondansetron [Zofran *Odt*] 4 mg SL TID PRN #21 od.tablet 08/29/19 COPD: No HTN: Yes Thyroid Disease: Yes (hypo) - Surgical History Cholecystectomy: Yes - Reproductive History Is Patient Now?: No - Psycho-Social/Smoking History Smoking Status: No Smoking History: Never smoked Have you smoked in the past 12 months: No Number of Cigarettes Smoked Daily: 0 *Physical Exam - Vital Signs Last Vital Signs Temp Pulse Resp BP Pulse Ox 97.9 F 79 18 132/80 98 12/13/19 15:19 12/13/19 15:19 12/13/19 15:19 12/13/19 15:19 12/13/19 15:19 ED Treatment Course - LABORATORY CBC & Chemistry Diagram: 12/13/19 16:00 12/13/19 16:00 Medical Decision Making - Medical Decision Making 12/13/19 15:53 HPI: 49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 Menses are irregular but usually c/4wks, 4-5 days, heavy but not too bad, associated with lower abdominal cramping. This menses began Friday as it should, but has been very heavy entire time soaking through 1-2 pads every hour (including overnight) with quarter-sized clots. Since Friday pt has also felt lightheaded and weak. First time. Endorses normal b/l lower abdominal cramping. Called architectural renderer and told to come here. Denies , estrogen or hormone use, BC use, hx architectural renderer issues, STIs, hx anemia or bleeding disorders. [employer] ROS: Constitutional: Positive for generalized weakness. Negative for chills, fever, diaphoresis. HENT: Negative for sore throat, rhinorrhea, congestion. Eyes: Negative for visual disturbance. Respiratory: Negative for shortness of breath, cough, and wheezing. Cardiovascular: Negative for chest pain, palpitations, and leg swelling. Gastrointestinal: Positive for abdominal cramping. Negative for blood in stool, constipation, diarrhea, nausea, and vomiting. Genitourinary: Positive for vaginal bleeding. Negative for dysuria, flank pain, vaginal discharge, genital irritation, and hematuria. Musculoskeletal: Negative for myalgias, back pain, and neck pain. Skin: Negative for rash. Neurological: Positive for light-headedness. Negative for dizziness, vertigo, syncope, weakness, numbness and headaches. Psychiatric/Behavioral: Negative for behavioral problems and confusion. PE: Gen: Alert, NAD, comfortable-appearing. HEENT: PERRL, EOMI, MMM, NCAT. No conjunctival pallor. Sclera are non-icteric. Oropharynx is clear. CV: Regular rate and rhythm. No murmurs, rubs, or gallops. PULM: No resp distress. CTAB, no wheezes, rales, or rhonchi. ABD: soft, NT/ND, no rebound tenderness or guarding, no CVA tenderness. PELVIC: External genitalia unremarkable. No discharge seen with speculum exam. +bright red blood in vault, slow oozing of blood from cervix, small dime-sized clots in vault. Bimanual exam without cervical motion tenderness, adnexal tenderness, or any masses appreciated. BACK: No TTP of c/t/l-spine. No step-offs or deformities. MSK: No bony deformities. 2+ pulses in all extremities. NEURO: AAOx3. PERRL. No gross CN deficits. Strength and sensation grossly intact throughout. Normal gait. EXTREMITIES: No cyanosis. No clubbing. No edema. No calf tenderness. PSYCH: Normal mood and thought pattern. SKIN: Warm and dry. Normal capillary refill. No rashes. No jaundice. 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 Hemodynamically stable, afebrile, benign abdomen, blood in vaginal vault. Ddx: heavy menses, perimenopause, fibroids, , ectopic , anemia, metabolic derangement. No concerning pain, urinary sx, vaginal discharge or irritation, or exam findings concerning for ovarian torsion, ovarian cyst/rupture, PID, STI, or UTI. -CBC,CMP,Coags,T&S,UA,Upreg -Dispo: pending w/u and reassessment Labs reviewed. No concerning findings. Most likely heavy menses or perimenopause. Will discharge home with architectural renderer f/u. Return precautions given. Pt understands all discharge instructions and all questions were answered. Discharge - Discharge Information Problems reviewed: Yes Clinical Impression/Diagnosis: Vaginal bleeding Condition: Improved Disposition: HOME - Admission No - Follow up/Referral Referrals: Siri Valadez [Primary Care Provider] - - Patient Discharge Instructions Patient Printed Discharge Instructions: DI for Vaginal Bleeding Additional Instructions: You have been seen for your heavy menstrual bleeding. Your labs and exam are not concerning for an emergent condition at this time. You could be having a heavy period or entering menopause. Follow-up with your Pressurised Container Filler within 72 hours. Return to the Emergency Department if you experience any new or concerning symptoms including bleeding through more than 2 pads per hour for 2 hours, passing out, or difficulty breathing. - Post Discharge Activity
[2019-12-13 16:30] LABS: BASO % 0.6 % (0-2.0); EOS % 3.6 % (0-4.5); HEMATOCRIT 39.4 % (32.4-45.2); HEMOGLOBIN 12.9 GM/dL (10.7-15.3); LYMPH % 23.4 % (8-40); MCH 28.2 pg (25.7-33.7); MCHC 32.8 g/dl (32.0-36.0); MEAN CELL VOLUME 85.9 fl (80-96); MEAN PLT VOLUME 8.3 fl (7.5-11.1); MONO % 7.3 % (3.8-10.2); NEUT % 65.1 % (42.8-82.8); PLATELET COUNT 266 K/MM3 (134-434); RBC 4.58 M/mm3 (3.60-5.2); RDW 13.9 % (11.6-15.6); WHITE BLOOD COUNT 12.1 K/mm3 (4.0-10.0)
--- NOTE | 2019-12-13 16:34 | PDOC ---
Documentation entered by Sudarshan Mccrary SCRIBE, acting as scribe for Juice Peng MD. Juice Peng MD: This documentation has been prepared by the Hermann zamarripa Xhesika, SCRIBE, under my direction and personally reviewed by me in its entirety. I confirm that the documentation accurately reflects all work, treatment, procedures, and medical decision making performed by me. 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 Pt states this is associated with lower abdominal cramping. Pt states she has been soaking through 1-2 pads every hour. Pt also reports 2 days of lightheadedness and weakness. Pt states she called her SECURITIES DEALER who advised pt to come to the ED for further evaluation. Allergies:Per Nursing Records SECURITIES DEALER:Red - Physicial Exam PE: 12/13/19 16:34 See resident exam - Medical Decision Making 12/13/19 16:35 49 F with heavy menstrual bleeding with cramps. Vitals stable. - Labs 12/13/19 17:09 Labs unremarkable H/H wnl Pt is well appearing, with normal vitals. Clinically stable for DC at this time. I discussed the physical exam findings, ancillary test results and final diagnoses with the patient. I answered all of the patient's questions. The patient was satisfied with the care received and felt comfortable with the discharge plan and treatment plan. The patient agrees to follow up with the primary care physician within 24-72 hours. Discharge - Discharge Information Problems reviewed: Yes Clinical Impression/Diagnosis: Vaginal bleeding Condition: Improved Disposition: HOME - Follow up/Referral Referrals: Siri Valadez [Primary Care Provider] - - Patient Discharge Instructions Patient Printed Discharge Instructions: DI for Vaginal Bleeding Additional Instructions: You have been seen for your heavy menstrual bleeding. Your labs and exam are not concerning for an emergent condition at this time. You could be having a heavy period or entering menopause. Follow-up with your Emergency Services Dispatcher within 72 hours. Return to the Emergency Department if you experience any new or concerning symptoms including bleeding through more than 2 pads per hour for 2 hours, passing out, or difficulty breathing. - Post Discharge Activity
[2019-12-13] MEDS ORDERED: SODIUM CHLORIDE 1,000 ML IV STA (16:35)
[2019-12-13 16:42] LABS: INR 1.02 (0.83-1.09)
[2019-12-13 16:45] LABS: ACTIVATED PTT 31.2 SECONDS (25.2-36.5)
[2019-12-13 16:57] LABS: ALBUMIN 3.6 g/dl (3.4-5.0); BILIRUBIN,TOTAL 0.2 mg/dL (0.2-1); CALCIUM 8.6 mg/dL (8.5-10.1); CREATININE 1.3 mg/dL (0.55-1.3); POTASSIUM 3.7 mmol/L (3.5-5.1)
--- OUTSIDE RECORDS SUMMARY | 2019-12-13 17:17 | XMS ---
:1970 Author Organization [facility] Support Name Relationship Address Phone [facility] Unavailable [address] [place] [address] [facility] Unavailable [address] [place] [address] TATIANA GAFFNEY [address] [place] [address] TATIANA GAFFNEY Spouse [address] [place] [address] Re-disclosure Warning The records that you are about to access may contain information from federally- assisted alcohol or drug abuse programs. If such information is present, then the following federally mandated warning applies: This information has been disclosed to you from records protected by federal confidentiality rules (42 CFR part 2). The federal rules prohibit you from making any further disclosure of this information unless further disclosure is expressly permitted by the written consent of the person to whom it pertains or as otherwise permitted by 42 CFR part 2. A general authorization for the release of medical or other information is NOT sufficient for this purpose. The Federal rules restrict any use of the information to criminally investigate or prosecute any alcohol or drug abuse patient.The records that you are about to access may contain highly sensitive health information, the redisclosure of which is protected by Article 27-F of the [place] State Public Health law. If you continue you may haveaccess to information: Regarding HIV / AIDS; Provided by facilities licensed or operated by the [facility] Office of Mental Health; or Provided by the [facility] Office for People With Developmental Disabilities. If such information is present, then the following [facility] mandated warning applies: This information has been disclosed to you from confidential records which are protected by state law. State law prohibits you from making any further disclosure of this information without the specific written consent of the person to whom it pertains, or as otherwise permitted by law. Any unauthorized further disclosure in violation of state law may result in a fine or senior living sentence or both. A general authorization for the release of medical or other information is NOT sufficient authorization for further disclosure. Insurance Providers Payer name Policy type Policy ID Covered Covered green party's Policy P otoniel / Coverage green party ID relationship to Tran Inf ormation type tran LOCAL [id number] [facility] EPO [id number] Results ID Date Data Source [id number] 08/29/2019 04:50:00 PM EDT [facility] Name Value Range Interpretation Description Data Sup porting Code Source(s) Document(s ) SARS [facility] CORONAVIRUS 2 RNA This lab was ordered by [facility] and reported by [facility]. Procedure
[2019-12-13 18:25] VITALS: BP 140/71; PULSE 60; TEMP 97.6
[2019-12-13 19:02] LABS: EPI CELLS >36 /uL (0-25.1); HYALINE CASTS 1 /uL (0-3.1); URINE APPEARANCE CLEAR; URINE BACTERIA 15 /uL (0-1359); URINE BILIRUBIN NEGATIVE (NEGATIVE); URINE COLOR RED; URINE GLUCOSE (UA) NEGATIVE (NEGATIVE); URINE KETONE NEGATIVE (NEGATIVE); URINE LEUK ESTERASE 1+ (NEGATIVE); URINE NITRITE NEGATIVE (NEGATIVE); URINE PROTEIN 2+ (NEGATIVE); URINE RBC 259 /uL (0-23.9); URINE UROBILINOGEN 0.2 mg/dL (0.2-1.0); URINE WBC 28 /uL (0-25.8)
== END 2019-12-13 18:05 | disposition home or self-care (01) ==
LOC: JER 14:59
PROC: 3E0337Z Introduction of Electrolytic and Water Balance Substance into Peripheral Vein, Percutaneous Approach (ICD-10-PCS; principal; 2019-12-13)
DX: N93.9 Abnormal uterine and vaginal bleeding, unspecified (principal)
CPT/HCPCS: 36415; 80053; 81003; 84703; 85025; 85610; 85730; 86850; 86900; 86901; 87086; 99285-25

== ENCOUNTER 2020-04-06 11:07 | Emergency (ER) | payer OTHER ==
[2020-04-06 11:19] VITALS: TEMP 98.1; BMI 38.9
[2020-04-06] MEDS ORDERED: SODIUM CHLORIDE 1,000 ML IV STA (12:03)
[2020-04-06 13:46] LABS: BASO % 0.7 % (0-2.0); EOS % 4.3 % (0-4.5); HEMATOCRIT 42.2 % (32.4-45.2); LYMPH % 30.6 % (8-40); MCH 28.3 pg (25.7-33.7); MCHC 33.1 g/dl (32.0-36.0); MEAN CELL VOLUME 85.3 fl (80-96); MEAN PLT VOLUME 7.9 fl (7.5-11.1); MONO % 7.5 % (3.8-10.2); NEUT % 56.9 % (42.8-82.8); PLATELET COUNT 280 K/MM3 (134-434); RBC 4.95 M/mm3 (3.60-5.2); RDW 13.8 % (11.6-15.6); WHITE BLOOD COUNT 10.3 K/mm3 (4.0-10.0)
[2020-04-06 14:09] LABS: CHLORIDE 103 mmol/L (98-107); POTASSIUM 3.5 mmol/L (3.5-5.1); SODIUM 140 mmol/L (136-145)
[2020-04-06 14:13] LABS: ALBUMIN 3.8 g/dl (3.4-5.0); ANION GAP 7 MMOL/L (8-16); BLOOD UREA NITROGEN 13.7 mg/dL (7-18); CALCIUM 9.1 mg/dL (8.5-10.1); CO2 30 mmol/L (21-32); GLUCOSE,RANDOM 75 mg/dL (74-106)
[2020-04-06 14:16] LABS: CREATININE 0.7 mg/dL (0.55-1.3); SGOT/AST 16 U/L (15-37); SGPT/ALT 26 U/L (13-61)
[2020-04-06 14:17] LABS: BILIRUBIN,TOTAL 0.6 mg/dL (0.2-1)
[2020-04-06 14:18] LABS: TOT PROT 7.1 g/dl (6.4-8.2)
[2020-04-06 14:19] LABS: ALK PHOS 84 U/L (45-117)
[2020-04-06 14:51] VITALS: BP 115/73; PULSE 72
== END 2020-04-06 14:51 | disposition home or self-care (01) ==
LOC: JER 11:07
DX: R55 Syncope and collapse (principal)
CPT/HCPCS: 36415; 80053; 82550; 84484; 85025; 93005; 93010; 99284-25

== ENCOUNTER 2020-11-24 04:45 | Day surgery (SDC) | payer OTHER ==
[2020-11-22 16:47] VITALS: BMI 42.0
[2020-11-24 08:58] VITALS: TEMP 97.1
[2020-11-24 09:41] VITALS: BP 127/72; PULSE 59
== END 2020-11-24 10:08 | disposition home or self-care (01) ==
LOC: JASU-ENDO 04:45
PROVIDERS: ATTEND Internal Medicine Gastroenterology
PROC: 0DB98ZX Excision of Duodenum, Via Natural or Artificial Opening Endoscopic, Diagnostic (ICD-10-PCS; 2020-11-24)
PROC: 0DB68ZX Excision of Stomach, Via Natural or Artificial Opening Endoscopic, Diagnostic (ICD-10-PCS; 2020-11-24)
PROC: 0DJD8ZZ Inspection of Lower Intestinal Tract, Via Natural or Artificial Opening Endoscopic (ICD-10-PCS; principal; 2020-11-24 08:00)
DX: Z12.11 Encounter for screening for malignant neoplasm of colon (principal); D50.0 Iron deficiency anemia secondary to blood loss (chronic); K29.80 Duodenitis without bleeding; K29.40 Chronic atrophic gastritis without bleeding; K64.8 Other hemorrhoids; K21.9 Gastro-esophageal reflux disease without esophagitis; K44.9 Diaphragmatic hernia without obstruction or gangrene; I10 Essential (primary) hypertension; R73.03 Prediabetes; E03.9 Hypothyroidism, unspecified
CPT/HCPCS: 43239; G0121; 81025

== ENCOUNTER 2022-08-16 11:29 | Emergency (ER) | payer OTHER ==
[2022-08-16 11:52] VITALS: BP 138/78; PULSE 81; RESP 17; TEMP 98.4; BMI 36.3
[2022-08-16] MEDS ORDERED: IBUPROFEN 600 MG TABLET (FP) PO ONE ×2 (12:18→12:19)
== END 2022-08-16 13:37 | disposition home or self-care (01) ==
LOC: JERFT 11:29
DX: S83.92XA Sprain of unspecified site of left knee, initial encounter (principal); S30.0XXA Contusion of lower back and pelvis, initial encounter; W19.XXXA Unspecified fall, initial encounter; W22.8XXA Striking against or struck by other objects, initial encounter
CPT/HCPCS: 73562-TC-LT-FY; 99283-25

== ENCOUNTER 2023-02-24 12:01 | Emergency (ER) | payer OTHER ==
[2023-02-24 12:54] VITALS: BP 151/75; PULSE 88; RESP 18; TEMP 98.6; BMI 37.2
[2023-02-24] MEDS ORDERED: METOCLOPRAMIDE HCL INJECTION 10 MG/2 ML VIAL IVPUSH ONE (13:39)
[2023-02-24] MEDS ORDERED: SODIUM CHLORIDE 0.9% 500 ML INFUS.BAG IV ONE (13:39)
[2023-02-24] MEDS ORDERED: ACETAMINOPHEN 1000 MG/100 ML BAG IVPB ONE (13:39)
[2023-02-24] MEDS ORDERED: METOCLOPRAMIDE HCL INJECTION 10 MG/2 ML VIAL ONE (13:50)
[2023-02-24] MEDS ORDERED: ACETAMINOPHEN INJECTION 100 ML IVPB ONE (13:50)
[2023-02-24 14:46] LABS: EPI CELLS 10 /uL (0-25.1); HYALINE CASTS 1 /uL (0-3.1); URINE APPEARANCE CLEAR; URINE BACTERIA 1686 /uL (0-1359); URINE BILIRUBIN NEGATIVE (NEGATIVE); URINE COLOR YELLOW; URINE GLUCOSE (UA) NEGATIVE (NEGATIVE); URINE KETONE NEGATIVE (NEGATIVE); URINE LEUK ESTERASE 3+ (NEGATIVE); URINE NITRITE NEGATIVE (NEGATIVE); URINE PROTEIN NEGATIVE (NEGATIVE); URINE UROBILINOGEN 0.2 mg/dL (0.2-1.0); URINE WBC 216 /uL (0-25.8)
[2023-02-24 14:57] LABS: URINE RBC NONE SEEN /uL (0-23.9)
[2023-02-24 14:58] LABS: YEAST NONE SEEN (NEGATIVE)
== END 2023-02-24 15:05 | disposition home or self-care (01) ==
LOC: JER 12:01
PROC: 3E033NZ Introduction of Analgesics, Hypnotics, Sedatives into Peripheral Vein, Percutaneous Approach (ICD-10-PCS; principal; 2023-02-24)
PROC: 3E033GC Introduction of Other Therapeutic Substance into Peripheral Vein, Percutaneous Approach (ICD-10-PCS; 2023-02-24)
DX: R51.9 Headache, unspecified (principal); R11.2 Nausea with vomiting, unspecified; H53.71 Glare sensitivity; R30.0 Dysuria; G43.909 Migraine, unspecified, not intractable, without status migrainosus; N39.0 Urinary tract infection, site not specified; R10.13 Epigastric pain; Z20.822 Contact with and (suspected) exposure to COVID-19
CPT/HCPCS: 0241U-QW; 81003; 87086; 87186; 99284-25